=== PATIENT | female | born 1985 | race Caucasian/White ===

== ENCOUNTER 2020-10-27 12:25 | Outpatient (REF) | payer OTHER, SELFPAY ==
[2020-10-28 14:17] LABS: H Pylori Breath Test NOT DETECTED (NOT DETECTED)
== END 2020-10-27 12:26 | disposition home or self-care (01) ==
LOC: HO.LNP 12:25
PROVIDERS: PCP Internal Medicine; Visit Provider Physician Assistant
DX: E66.01 Morbid (severe) obesity due to excess calories (principal); Z68.41 Body mass index [BMI] 40.0-44.9, adult
CPT/HCPCS: 83013; 99202; 99211

== ENCOUNTER 2020-11-04 09:24 | Outpatient (REF) | payer OTHER, SELFPAY ==
--- NOTE | ~2020-11-04 | XR_ITS ---
EXAMINATION: XR CHEST CLINICAL INFORMATION: Obesity COMPARISON: None TECHNIQUE: 2 views of the chest were obtained. FINDINGS: The cardiac and mediastinal contours are normal. There is a pleural-based density adjacent to the right lateral lower lung. This may be related to the soft tissues of the arm. The lungs are otherwise clear. There is no pleural effusion or pneumothorax. Bony structures are unremarkable XR/XR chest 2V IMPRESSION: Increased pleural-based density adjacent to the lateral right mid to lower lung. This may be related to soft tissues from the patient's overlapping right arm. Follow-up PA chest x-ray recommended with arms out to the side.
--- NOTE | 2020-11-04 09:39 | ECG_ITS ---
Test Reason : MORBID OBESITY Blood Pressure : / mmHG Vent. Rate : 057 BPM Atrial Rate : 057 BPM P-R Int : 134 ms QRS Dur : 082 ms QT Int : 458 ms P-R-T Axes : 006 -13 001 degrees QTc Int : 445 ms Sinus bradycardia Otherwise normal ECG No previous ECGs available Referred By: Pilar Todd Electronically Signed By:Mati Vallejo
[2020-11-04 09:54] LABS: MANUAL DIFF FLAG NO
[2020-11-04 10:25] LABS: Basophils Percent Auto 0.7 % (0-2); Eosinophils Percent Auto 0.9 % (0-4); Hematocrit 37.1 % (37-47); Imm Gran Abs Auto 0.01 X10*3/uL (0.00-0.03); Imm Gran Pct Auto 0.2 % (0.0-0.4); Lymphocytes Absolute Auto 1.3 X10*3/uL (1.2-4.9); Mean Corpuscular HGB Conc 32.3 g/dl (31.0-35.0); Mean Corpuscular Hemoglobin 26.7 pg (27.0-33.0); Mean Corpuscular Volume 82.6 fL (80-98); Mean Platelet Volume 10.2 fL (9.4-12.3); Monocytes Absolute Auto 0.5 X10*3/uL (0.1-1.2); Monocytes Percent Auto 9.9 % (2-11); Neutrophils Absolute Auto 2.7 X10*3/uL (2.0-8.3); Neutrophils Percent Auto 60.3 % (45-73); Platelet Count 243 X10*3/uL (160-400); Red Blood Count 4.49 X10*6/uL (4.20-5.50); Red Cell Distribution Width 13.7 % (11.0-16.0); White Blood Count 4.5 X10*3/uL (4.8-10.8)
[2020-11-04 10:32] LABS: Estimated Average Glucose 94 mg/dL; Hemoglobin A1c % 4.9 %
[2020-11-04 11:03] LABS: Alanine Aminotransferase 21 U/L (0-31); Albumin Level 4.3 g/dL (3.5-5.0); Alkaline Phosphatase 68 U/L (39-117); Anion Gap 12 (12-20); Aspartate Amino Transferase 21 U/L (5-31); Bilirubin Total 0.6 mg/dL (0.0-1.0); Blood Urea Nitrogen 14 mg/dL (9-16); Calcium 9.4 mg/dL (8.4-10.2); Carbon Dioxide 24 mmol/L (22-29); Chloride 107 mmol/L (96-108); Cholesterol 155 mg/dL; Estimated Glomerular Filt Rate > 60; Glucose Fasting 79 mg/dL (60-99); HDL Cholesterol 45 mg/dL; Iron 28 mcg/dL (30-160); LDL Cholesterol Calculated 103 mg/dl; Percent Iron Saturation 8 % (15-50); Potassium 4.2 mmol/L (3.3-5.1); Sodium 139 mmol/L (135-145); Total Iron Binding Capacity 343 mcg/dL (228-428); Total Protein 7.1 g/dL (6.5-8.0); Triglycerides 36 mg/dL; Unsaturated Iron Binding 315 ug/dL
[2020-11-04 11:28] LABS: Ferritin 15 ng/mL (10-122); TSH reflex Free T4 1.27 uIU/mL (0.32-4.0)
[2020-11-04 11:34] LABS: Folate 17.7 ng/mL (> or = 4.0); Vitamin B12 1603 pg/mL (200-900)
[2020-11-05 09:22] LABS: Insulin Level Total 3.5 uIU/mL
[2020-11-05 11:22] LABS: Calcium (PTHI) 9.4 mg/dL (8.6-10.2); PTHI 30 pg/mL (14-64)
[2020-11-08 17:33] LABS: Zinc 81 mcg/dL (60-130)
[2020-11-10 12:27] LABS: Vitamin B1 6 nmol/L (8-30)
== END 2020-11-04 09:25 | disposition home or self-care (01) ==
LOC: HO.XRAY 09:24
PROVIDERS: PCP Internal Medicine; Visit Provider Physician Assistant
DX: E66.01 Morbid (severe) obesity due to excess calories (principal); R06.02 Shortness of breath; Z68.41 Body mass index [BMI] 40.0-44.9, adult
CPT/HCPCS: 36415; 71046; 80053; 80061; 82306; 82607; 82728; 82746; 83036; 83525; 83540; 83970; 84425; 84443; 84590; 84630; 85025; 86140; 93005

== ENCOUNTER 2020-11-16 13:52 | Outpatient (REF) | payer OTHER, SELFPAY ==
--- NOTE | ~2020-11-16 | XR_ITS ---
EXAMINATION: XR CHEST CLINICAL INFORMATION: Bariatric service evaluation. E66.01 COMPARISON: Chest radiographs 11/04/2020 TECHNIQUE: 2 frontal views and a lateral projection of the chest are obtained for 3 views. FINDINGS: Lungs are clear. The vascularity is normal. There is no pleural reaction, airspace consolidation, or effusion. The heart is normal in size. The hilar and mediastinal contours are unremarkable. Mild curvature thoracic spine again noted. The smooth density overlying lateral right chest is not present on the second of the 2 frontal views consistent with superimposed overlying soft tissues as suspected on prior exam. XR/XR chest 2V IMPRESSION: Unremarkable examination.
== END 2020-11-16 13:53 | disposition home or self-care (01) ==
LOC: HO.XRAY 13:52
PROVIDERS: PCP Internal Medicine; Visit Provider Physician Assistant
DX: E66.01 Morbid (severe) obesity due to excess calories (principal); R06.02 Shortness of breath; E51.9 Thiamine deficiency, unspecified; E55.9 Vitamin D deficiency, unspecified; Z71.3 Dietary counseling and surveillance
CPT/HCPCS: 71046; 99212

== ENCOUNTER → 2020-12-06 08:13 | Outpatient (BNVA) | payer OTHER, SELFPAY | PROVIDERS: PCP Internal Medicine; Visit Provider Dietitian, Registered | DX: E66.9 Obesity, unspecified (principal); Z68.41 Body mass index [BMI] 40.0-44.9, adult | CPT/HCPCS: 97802 ==

== ENCOUNTER 2020-12-13 11:07 | Outpatient (REF) | payer OTHER, SELFPAY ==
[2020-12-13 14:05] LABS: Vitamin D 25-OH Total 35.9 ng/mL (>30)
[2020-12-17 12:51] LABS: Vitamin B1 7 nmol/L (8-30)
== END 2020-12-13 11:08 | disposition home or self-care (01) ==
LOC: HO.LAB 11:07
PROVIDERS: Visit Provider Physician Assistant
DX: E51.9 Thiamine deficiency, unspecified (principal); E55.9 Vitamin D deficiency, unspecified
CPT/HCPCS: 36415; 82306; 84425

== ENCOUNTER → 2021-01-14 07:33 | Outpatient (BNVA) | payer OTHER, SELFPAY | PROVIDERS: Visit Provider Surgery ==

== ENCOUNTER 2021-01-20 09:44 | Outpatient (REF) | payer OTHER, SELFPAY ==
--- NOTE | ~2021-01-20 | FL_ITS ---
EXAMINATION: XR GI SERIES CLINICAL INFORMATION: Obesity COMPARISON: None TECHNIQUE: Upper GI was performed using thin and thick barium and effervescent granules. FINDINGS: Esophageal motility is normal. The stomach and duodenum are normal. No fold thickening, mass, ulcer or stricture is seen. No esophageal hernia or reflux is seen. FLUOROSCOPY TIME: 0.8 minutes DOSE AREA PRODUCT: 8 Lanza per centimeter squared. Total dose 36 mGy. 24 saved fluoroscopic images. FL/FL upper GI series IMPRESSION: Unremarkable examination.
== END 2021-01-20 09:45 | disposition home or self-care (01) ==
LOC: HO.XRAY 09:44
PROVIDERS: Visit Provider Surgery
DX: Z01.818 Encounter for other preprocedural examination (principal); E66.01 Morbid (severe) obesity due to excess calories
CPT/HCPCS: 74240

== ENCOUNTER 2021-02-03 09:50 | Outpatient (REF) | payer OTHER, SELFPAY ==
--- NOTE | ~2021-02-03 | US_ITS ---
EXAMINATION: US COMPLETE ABDOMEN WITH LIVER ELASTOGRAPHY CLINICAL INFORMATION: Obesity COMPARISON: None. TECHNIQUE: Real-time imaging of the abdominal viscera. Noninvasive ultrasound liver fibrosis assessment is performed using Waqas ElastPQ point quantification shear wave elastography (pSWE) with a C5-2 MHz transducer. Multiple elastography samples are obtained. FINDINGS: PANCREAS: The visualized pancreatic head and body are normal in appearance. The remainder of the pancreas is obscured from visualization by the overlying bowel gas. ABDOMINAL AORTA: The proximal and distal aortic segments are normal in caliber. Midabdominal aorta is not well visualized due to bowel gas. INFERIOR VENA CAVA: Visualized portions are normal. LIVER: Normal. The liver demonstrates normal size, contour and echogenicity. No focal lesion or intrahepatic biliary duct dilatation. The right lobe measures 16 cm in length. The left lobe measures 10 cm in length. Portal flow is normal/hepatopedal. Shear wave liver elastography median stiffness is 1.4 m/s (reference: normal median stiffness is 1.3 m/s or less). IQR/median stiffness to assess sampling precision is 0.26 (reference: good quality data set is IQR/median stiffness of 0.15 or less). GALLBLADDER: There is a wall echo shadow complex suggestive of a gallbladder filled with gallstones. COMMON BILE DUCT: Normal in caliber measuring 0.6 cm in diameter. RIGHT KIDNEY: Normal. No hydronephrosis. No renal calculi or focal parenchymal lesions. The kidney measures 12 cm in maximum dimension. LEFT KIDNEY: Normal. No hydronephrosis. No renal calculi or focal parenchymal lesions. The kidney measures 13 cm in maximum dimension. SPLEEN: Normal. The spleen measures 11 cm in maximum dimension. FREE FLUID: None. US/US abdomen comp w elastography IMPRESSION: 1. Impression normal-appearing liver. Gallstones. Limited visualization of the pancreas and aorta. 2. Liver elastography: Slightly limited due to sampling error. In the absence of other known clinical signs, rules out compensated advanced chronic liver disease. REFERENCE: Society of Radiologists in Ultrasound Liver Stiffness Thresholds (2020): LIVER STIFFNESS THRESHOLDS: *Liver Stiffness equal or less than 1.3 m/s: High probability of being normal. *Liver Stiffness less than 1.7 m/s: In the absence of other known clinical signs, rules out compensated advanced chronic liver disease. *Liver Stiffness 1.7-2.1 m/s: Suggestive of compensated advanced chronic liver disease but need further test for confirmation. *Liver Stiffness over 2.1 m/s: Rules in compensated advanced chronic liver disease. *Liver Stiffness over 2.4 m/s: Suggestive of clinically significant portal hypertension. QUALITY OF DATA SET: *IQR/Median value equal or less than 0.15 implies a quality data set. *IQR/Median value over 0.15 implies a poor quality data set. SIGNIFICANT CHANGE FROM PRIOR EXAM: Significant change if liver stiffness measurement is 10% or greater from prior exam. OTHER CONSIDERATIONS: The stage of liver fibrosis may be overestimated in the setting of acute hepatitis, liver inflammation, elevated liver function tests, hepatic vascular congestion, obstructive cholestasis, non-fasting state, and infiltrative diseases such as amyloidosis and lymphoma. In some patients with NAFLD, the liver stiffness thresholds for compensated advanced chronic liver disease may be lower. In causes other than viral hepatitis and NAFLD, liver stiffness thresholds are not well established.
== END 2021-02-03 09:51 | disposition home or self-care (01) ==
LOC: HO.US 09:50
PROVIDERS: Visit Provider Surgery
DX: Z01.818 Encounter for other preprocedural examination (principal); E66.01 Morbid (severe) obesity due to excess calories
CPT/HCPCS: 76705; 76981

== ENCOUNTER → 2021-02-10 08:10 | Outpatient (BNVA) | payer OTHER, SELFPAY | PROVIDERS: Visit Provider Surgery ==

== ENCOUNTER → 2021-02-28 08:03 | Outpatient (BNVA) | payer OTHER, SELFPAY | PROVIDERS: Visit Provider Surgery ==

== ENCOUNTER → 2021-03-01 08:03 | Outpatient (BNVA) | payer OTHER, SELFPAY | PROVIDERS: Visit Provider Physician Assistant ==

== ENCOUNTER → 2021-03-07 07:40 | Outpatient (BNVA) | payer OTHER, SELFPAY | PROVIDERS: Visit Provider Surgery ==

== ENCOUNTER → 2021-03-11 13:21 | Outpatient (BNVA) | payer OTHER, SELFPAY | PROVIDERS: Visit Provider Physician Assistant ==

== ENCOUNTER 2021-03-17 09:42 | Inpatient (IN) | payer OTHER, SELFPAY ==
[2021-03-10 11:20] VITALS: BMI 38.7
[2021-03-10 11:47] LABS: MANUAL DIFF FLAG NO
[2021-03-10 12:00] LABS: Basophils Percent Auto 0.6 % (0-2); Eosinophils Absolute Auto 0.1 X10*3/uL (0.0-0.4); Eosinophils Percent Auto 2.5 % (0-4); Hematocrit 39.4 % (37-47); Hemoglobin 12.7 g/dl (12.0-16.0); Imm Gran Abs Auto 0.01 X10*3/uL (0.00-0.03); Imm Gran Pct Auto 0.3 % (0.0-0.4); Lymphocytes Absolute Auto 1.1 X10*3/uL (1.2-4.9); Lymphocytes Percent Auto 30.8 % (20-40); Mean Corpuscular HGB Conc 32.2 g/dl (31.0-35.0); Mean Corpuscular Hemoglobin 27.9 pg (27.0-33.0); Mean Corpuscular Volume 86.6 fL (80-98); Mean Platelet Volume 10.1 fL (9.4-12.3); Monocytes Absolute Auto 0.4 X10*3/uL (0.1-1.2); Neutrophils Percent Auto 55.8 % (45-73); Platelet Count 232 X10*3/uL (160-400); Prothrombin Time 11.9 SEC (9.9-13.0); Red Blood Count 4.55 X10*6/uL (4.20-5.50); Red Cell Distribution Width 13.7 % (11.0-16.0); White Blood Count 3.6 X10*3/uL (4.8-10.8)
[2021-03-10 12:03] LABS: Partial Thromboplastin Time 38.6 SEC (24.1-38.0)
[2021-03-10 12:19] LABS: Estimated Average Glucose 94 mg/dL; Hemoglobin A1c % 4.9 %
[2021-03-10 12:28] LABS: Alanine Aminotransferase 67 U/L (0-31); Albumin Level 4.3 g/dL (3.5-5.0); Alkaline Phosphatase 112 U/L (39-117); Anion Gap 9 (12-20); Aspartate Amino Transferase 44 U/L (5-31); Bilirubin Total 0.4 mg/dL (0.0-1.0); Blood Urea Nitrogen 10 mg/dL (9-16); C Reactive Protein 0.39 mg/dL (< or = 0.50); Calcium 9.3 mg/dL (8.4-10.2); Carbon Dioxide 28 mmol/L (22-29); Chloride 108 mmol/L (96-108); Cholesterol 180 mg/dL; Creatinine Clr Calc Pharmacy 148.4; Estimated Glomerular Filt Rate > 60; Glucose Random 86 mg/dL (60-115); HDL Cholesterol 36 mg/dL; LDL Cholesterol Calculated 127 mg/dl; Potassium 4.1 mmol/L (3.3-5.1); Sodium 141 mmol/L (135-145); Triglycerides 88 mg/dL
[2021-03-10 12:37] LABS: Insulin 4 uU/mL (2-29); TSH reflex Free T4 2.16 uIU/mL (0.32-4.0)
--- NOTE | 2021-03-14 19:54 | MHC.SHP ---
Pre-Procedural Eval Section A Date of Service: 03/14/21 The patient is an INPATIENT: Yes The History & Physical has been completed within 30 days and I have reviewed it.: Yes Section B Chief Complaint: Obesity Relevant Family History (Specify if Yes): No Relevant Social History: None Present Medications: None Medical History: No relevant PMH History of Previous Operations: No relevant previous surgery Allergies: Allergies Allergy/AdvReac Type Severity Reaction Status Date / Time No Known Allergies [NKA] Allergy Verified 03/10/21 08:28 Review of Systems Sugical H&P ROS: Negative: Constitution, Cardiovascular, Respiratory, Neurological, Psychiatric, Hem-Onc, Allergic/Immunologic, Gastrointestinal, Genitourinary, Musculoskeletal, Integumentary, Endocrine and Eyes/Ears/Nose/Throat Exam Surgical H&P Exam: Normal: HEENT, Normal: Heart, Normal: Lungs, Normal: Extremities, Normal: Abdomen, Normal: Skin and Normal: Neurological Plan Diagnosis/Plan: Unchanged I have reviewed the history and physical and performed a pertinent physical examination on my patient. No changes have occurred unless specified.
[2021-03-15 12:31] LABS: Vitamin B1 <6 nmol/L (8-30)
--- NOTE | 2021-03-16 10:41 | HO.ANESPROP2 ---
Documented by User: Morenita Granado NP 03/16/21 10:41 HPI - Anesthesia Eval Consult details Narrative: 35yo F for Gastrectomy Sleeve, EGD, Poss Diaphragmatic Hernia, Poss Ventral Hernia, Poss open PMFSH Active Problems Active Problems: All Active Problems (Updated 03/07/21 @ 07:42 by Min Painter MD) BMI 38.0-38.9,adult (Acute) BMI 39.0-39.9,adult (Acute) Obesity (Acute) Pre-op evaluation (Acute) Morbid obesity (Acute) Vitamin D deficiency (Acute) Vitamin B1 deficiency (Acute) Adjustment disorder, unspecified (Acute) BMI 40.0-44.9, adult (Acute) Past Medical History Medical History BMI 40.0-44.9, adult Gestational hypertension Morbid obesity Vitamin B1 deficiency Vitamin D deficiency Family History Family History Mother Asthma Father Diabetes Hypertension Brother No problems noted. Son No problems noted. Daughter No problems noted. Daughter No problems noted. Daughter No problems noted. Daughter No problems noted. Surgical History Surgical History Hx of section Hx of tubal ligation Social History Social History Are you a primary critical care nurse to a significant other at home: No Do you presently have visiting nurse or other home services: No Alcohol intake: never Patient Tobacco Use Status: Never used Tobacco Meds Allergies Allergy/AdvReac Type Severity Reaction Status Date / Time No Known Allergies [NKA] Allergy Verified 03/10/21 08:28 Exam Exam Date and Time: March 16, 2021 1041 Height,Weight and Vital Signs: Height 5 ft 8 in Weight 115.666 kg Pertinent Lab Results Pertinent Lab Results: Laboratory Tests 03/10/21 03/10/21 03/10/21 11:38 11:45 11:45 WBC 3.6 L RBC 4.55 Hgb 12.7 Hct 39.4 MCV 86.6 MCH 27.9 MCHC 32.2 RDW 13.7 Plt Count 232 MPV 10.1 Immature Gran % (Auto) 0.3 Neut % (Auto) 55.8 Lymph % (Auto) 30.8 Andrew % (Auto) 10.0 Eos % (Auto) 2.5 Baso % (Auto) 0.6 Lymph # (Auto) 1.1 L Andrew # (Auto) 0.4 Eos # (Auto) 0.1 Baso # (Auto) 0.0 Abs Immat Gran (auto) 0.01 Absolute Neuts (auto) 2.0 Absolute Nucleated RBC 0.000 Nucleated RBC % (auto) 0.0 PT INR APTT Sodium Potassium Chloride Carbon Dioxide Anion Gap BUN Creatinine Estim Creat Clear Calc Estimated GFR Random Glucose Estimat Average Glucose Hemoglobin A1c % Insulin Level Calcium Total Bilirubin AST ALT Alkaline Phosphatase C-Reactive Protein Total Protein Albumin Triglycerides Cholesterol LDL Cholesterol, Calc HDL Cholesterol Vitamin B1 <6 L TSH Blood Type O Positive Antibody Screen NEGATIVE 03/10/21 03/10/21 03/10/21 11:45 11:45 11:45 WBC RBC Hgb Hct MCV MCH MCHC RDW Plt Count MPV Immature Gran % (Auto) Neut % (Auto) Lymph % (Auto) Andrew % (Auto) Eos % (Auto) Baso % (Auto) Lymph # (Auto) Andrew # (Auto) Eos # (Auto) Baso # (Auto) Abs Immat Gran (auto) Absolute Neuts (auto) Absolute Nucleated RBC Nucleated RBC % (auto) PT 11.9 INR 1.0 APTT 38.6 H Sodium 141 Potassium 4.1 Chloride 108 Carbon Dioxide 28 Anion Gap 9 L BUN 10 Creatinine 0.72 Estim Creat Clear Calc 148.4 Estimated GFR > 60 Random Glucose 86 Estimat Average Glucose 94 Hemoglobin A1c % 4.9 Insulin Level 4 Calcium 9.3 Total Bilirubin 0.4 AST 44 H D ALT 67 H Alkaline Phosphatase 112 D C-Reactive Protein 0.39 Total Protein 7.0 Albumin 4.3 Triglycerides 88 Cholesterol 180 LDL Cholesterol, Calc 127 HDL Cholesterol 36 Vitamin B1 TSH 2.16 Blood Type Antibody Screen Narrative Narrative: EKG 10/2020 Vent. Rate : 057 BPM ? ? Atrial Rate : 057 BPM ?? P-R Int : 134 ms? QRS Dur : 082 ms ? ? QT Int : 458 ms ? ? ? P-R-T Axes : 006 -13 001 degrees ?? QTc Int : 445 ms ? Sinus bradycardia Otherwise normal ECG No previous ECGs available Assessment and Plan Assessment Anesthesia Assessment: Chart Reviewed Documented by User: Saray Rush MD 03/17/21 07:38 PMFSH Past Medical History Medical History BMI 40.0-44.9, adult Gestational hypertension Morbid obesity Vitamin B1 deficiency Vitamin D deficiency Family History Family History Mother Asthma Father Diabetes Hypertension Brother No problems noted. Son No problems noted. Daughter No problems noted. Daughter No problems noted. Daughter No problems noted. Daughter No problems noted. Family history of problems with anesthesia: No Surgical History Surgical History Hx of section Hx of tubal ligation History of Problems with Anesthesia: Yes (N&V with C-sections) Social History Social History Are you a primary critical care nurse to a significant other at home: No Do you presently have visiting nurse or other home services: No Alcohol intake: never Patient Tobacco Use Status: Never used Tobacco Meds Allergies Allergy/AdvReac Type Severity Reaction Status Date / Time No Known Allergies [NKA] Allergy Verified 03/10/21 08:28 Exam Height,Weight and Vital Signs: Height 5 ft 8 in Weight 115.666 kg Vital Signs Temp Pulse Resp BP Pulse Ox 03/17/21 06:27 98.0 F 82 16 106/52 L 100 Pertinent Lab Results Pertinent Lab Results: Laboratory Tests 03/10/21 03/10/21 03/10/21 11:38 11:45 11:45 WBC 3.6 L RBC 4.55 Hgb 12.7 Hct 39.4 MCV 86.6 MCH 27.9 MCHC 32.2 RDW 13.7 Plt Count 232 MPV 10.1 Immature Gran % (Auto) 0.3 Neut % (Auto) 55.8 Lymph % (Auto) 30.8 Andrew % (Auto) 10.0 Eos % (Auto) 2.5 Baso % (Auto) 0.6 Lymph # (Auto) 1.1 L Andrew # (Auto) 0.4 Eos # (Auto) 0.1 Baso # (Auto) 0.0 Abs Immat Gran (auto) 0.01 Absolute Neuts (auto) 2.0 Absolute Nucleated RBC 0.000 Nucleated RBC % (auto) 0.0 PT INR APTT Sodium Potassium Chloride Carbon Dioxide Anion Gap BUN Creatinine Estim Creat Clear Calc Estimated GFR Random Glucose Estimat Average Glucose Hemoglobin A1c % Insulin Level Calcium Total Bilirubin AST ALT Alkaline Phosphatase C-Reactive Protein Total Protein Albumin Triglycerides Cholesterol LDL Cholesterol, Calc HDL Cholesterol Vitamin B1 <6 L TSH Blood Type O Positive Antibody Screen NEGATIVE 03/10/21 03/10/21 03/10/21 11:45 11:45 11:45 WBC RBC Hgb Hct MCV MCH MCHC RDW Plt Count MPV Immature Gran % (Auto) Neut % (Auto) Lymph % (Auto) Andrew % (Auto) Eos % (Auto) Baso % (Auto) Lymph # (Auto) Andrew # (Auto) Eos # (Auto) Baso # (Auto) Abs Immat Gran (auto) Absolute Neuts (auto) Absolute Nucleated RBC Nucleated RBC % (auto) PT 11.9 INR 1.0 APTT 38.6 H Sodium 141 Potassium 4.1 Chloride 108 Carbon Dioxide 28 Anion Gap 9 L BUN 10 Creatinine 0.72 Estim Creat Clear Calc 148.4 Estimated GFR > 60 Random Glucose 86 Estimat Average Glucose 94 Hemoglobin A1c % 4.9 Insulin Level 4 Calcium 9.3 Total Bilirubin 0.4 AST 44 H D ALT 67 H Alkaline Phosphatase 112 D C-Reactive Protein 0.39 Total Protein 7.0 Albumin 4.3 Triglycerides 88 Cholesterol 180 LDL Cholesterol, Calc 127 HDL Cholesterol 36 Vitamin B1 TSH 2.16 Blood Type Antibody Screen Laboratory Results - last 24 hr 03/17/21 06:12 COVID-19 ([facility]) Negative COVID-19 Clin Com See Note Airway Mallampati Class: II TM Dist: >3cm Neck ROM: Full Loose/Missing/Broken Teeth: No Heart: RRR Lungs: CTAB Assessment and Plan Assessment Anesthesia Assessment: Anesthesia Plan Discussed Final Anesthetic Review Family History of Problems with Anesthesia: No History of Problems with Anesthesia: Yes (N&V with C-sections) NPO: Yes ASA Class: III Final Preanesthetic Review: No Changes in Pt Med Stat, Meds/Allgs Chart Reviewed, Consent Obtained/Reviewed and Anes Risks/Benef Reviewed Patient Risk: Intermediate Procedure Risk: Intermediate Assessment/Block/Sedation in SS: Assess/Block/Sedation-SS Anesthetic Plan Anesthetic Plan: GA Disposition: Standard PACU and Inp. Admit - Standard Bed
[2021-03-17] VITALS (17 sets, daily range): BP systolic 106–132; BP diastolic 50–87; PULSE 60–96; RESP 16–20; TEMP 36.2–37.2; O2SAT 99–100
[2021-03-17 06:46] LABS: COVID-19 Test Negative (Negative)
[2021-03-17] MEDS: Lactated Ringers 1,000 ML 999 ML IV (06:47)
[2021-03-17] MEDS: ceFAZolin Sodium/Dextrose,Iso 2 GM/50 ML PIGGYBACK IV ×2 (07:45→14:09)
[2021-03-17] MEDS: ondansetron HCL 4 MG/2 ML VIAL IVPUSH ×3 (09:46→22:41)
--- NOTE | 2021-03-17 09:47 | P.BOP_ITS ---
Brief Operative Note Date of Service: 03/17/21 Pre-op diagnosis: Severe obesity with comorbidities Post-op diagnosis: same Procedure: INITIAL PATIENT BMI ON PRESENTATION AT OUR OFFICE: 41.9 kg/m2 LAST BMI BEFORE SURGERY: 38.7 kg/m2 COMORBIDITIES: cholelithiasis The patient participated in an intensive weekly lifestyle ?intervention and exercise program during which the patient ?has lost between the initial office visit and the last preoperative visit 33lbs, or 11.43% of initial actual body weight. The patient met the BMI-criteria for bariatric surgery based on the BMI on initial presentation. The patient should not be penalized for achieving such weight loss because ?it is not sustainable long-term without surgical intervention and it was achieved in preparation for bariatric surgery ?under my direction and based on my published research ([email or web address] and? [email or web address]/pdf ) ?that a 10% preoperative weight loss improves long-term weight loss after surgery and reduces perioperative complications.? Insurance carriers such as [facility] have endorsed my recommendations ?and have included in their policies criteria to in clude a 10% preoperative weight loss requirement. PROCEDURE: Esophago-gastroscopy, laparoscopic sleeve gastrectomy and laparoscopic gastropexy INDICATIONS: This is a 35 year-old female who was electively scheduled for laparoscopic, possibly open sleeve gastrectomy. The risks and complications of the procedure were discussed with the patient in advance, particularly the possibility of ; pulmonary embolism; staple line leak; bleeding; GERD; cardiac, pulmonary, or renal complications; as well as long-term problems such as insufficient weight loss, vitamin deficiency, strictures, or ulcers. The patient understood all the risks, and was in agreement to proceed with surgery. DESCRIPTION OF PROCEDURE: After informed consent was obtained from the patient, the patient was given preoperative antibiotics, and was transferred to the operating room. After successful induction of general anesthesia, pneumatic compressive devices were placed on both lower extremities. An upper endoscopy was performed next. The oropharynx and esophagus appeared to be within normal limits. There was no diaphragmatic hernia present consistent with the findings of the preoperative upper GI. The stomach was entered. Then after all fluid and air were suctioned and the stomach was fully decompressed, the scope was withdrawn and secured in the mid esophagus. The patient was then prepped and draped in the usual sterile manner, and abdominal access was established at the right upper quadrant with the Carlos Manuel technique. A 12 mm blunt port was inserted, and the abdomen was insufflated with CO2 to a pressure of 15 mmHg. Under direct visualization, additional ports were placed, specifically two 5 mm Versi-step ports to the left upper quadrant, and a 5 mm Versi-Step port to the right upper quadrant. 1% lidocaine plain was used to infiltrate all port sites as well as all fascia defects. Using the EndoClose suture passer device, I placed a #1 Polysorb tie across the falciform ligament in order to retract it up against the abdominal wall and prevent injury of the ligament with our instruments during the procedure. Following that, the patient was placed in a steep reverse Trendelenburg position. An additional 5 mm port was placed to the right flank for the Mediflex retractor that was used to retract the left lobe of the liver. The gastro-esophageal fat pad was opened with the ultrasonic device (T hunderbeat, Olympus) and the anterior esophagus and hiatus were exposed. The angle of His was opened with the ultrasonic device the fundus of the stomach from any diaphragmatic and splenic attachments. I then opened the gastrocolic ligament between the transverse colon and the greater curvature of the stomach with the ultrasonic device to enter the lesser sac and facilitate the ligation of the short gastric vessels. I started at a mid-point along the greater curvature and using the Thunderbeat, all short gastric vessels were divided all the way to the angle of His until the left jeff was completely dissected at its entirety. I then divided the gastro-colic ligament distally to a distance of about 3-4 cm proximal to the esophagus. The stomach was then divided transversely with one Endo DANNI-45 purple, one DANNI- 45 orange and four DANNI-60 articulating orange loads using the SinDelantal.MxON staplers and loads. Every effort was made that the gastric sleeve had a tubular shape and an even caliber throughout. Once the sleeve resection was completed, the staple line of the gastric sleeve was reinforced with Hemoclips. The resected stomach was retrieved without difficulty from the Carlos Manuel port. A gastropexy was then performed in order to prevent postoperative GERD and partial gastric volvulus. Several interrupted 2.0 Surgidac sutures were placed between the sleeve's staple line and the previously divided greater omentum and gastro-colic ligament using the Endo-Stitch device. ?An upper endoscopy was performed. There was no narrowing at the GE junction. The scope was easily advanced all the way to the pylorus which was clearly visualized. There was no narrowing anywhere and the sleeve's caliber was even throughout. The sleeve's staple line was inspected and there was no evidence of ischemia, bleeding or dehiscence. At that point the gastroscope was withdrawn from the patient?s mouth while we were decompressing the bowel and the stomach from any remaining air. I looked into the lesser sac to see how the sleeve was situating and it was situating well. There was no bleeding from the staple line, spleen, or short gastric vessels. The Mediflex retractor was removed, and the undersurface of the liver was inspected and there was no bleeding. The patient was placed in supine position. I closed the fascial defect of the 12 mm port site with a figure of eight #1 Polysorb suture. Then 100 cc 0.25 % Marcaine plain with 10 mg of Dexamethasone were used to infiltrate the fascial closure as well as all skin incisions. At this point, the abdomen was deflated, all ports were removed under direct vision, and no bleeding was noted from any of the port sites. The skin incisions were irrigated with saline and were closed with 4-0 absorbable monofilament sutures. Steri-Strips and OpSites were used to cover all incisions. The patient was extubated and was transferred in stable condition to the recovery room for further care. I was present and performed all chowdary parts of the procedure. Ms. Bhatt was the office manager executive assistant. There were no residents to assist with this case. Mikal Painter MD, PhD, FACS Surgeon: Min Painter MD Anesthesia: GETA Was an Chemical Inspector used for this Procedure?: Yes Chemical Inspector: Beth Bhatt Estimated blood loss (mL): 10 IV fluids (mL): 2,000 Urine output (mL): 0 (No Balderas to fravity) Pathology: other (Stomach) Condition: stable Disposition: PACU
--- NOTE | 2021-03-17 09:49 | P.DS_ITS ---
DS: Providers Provider Date of Service: 03/18/21 Primary care physician: Unknown Physician DS: Summary Hospital Course Hospital Course: ADMITTING DIAGNOSIS: morbid obesity DISCHARGE DIAGNOSIS: same, s/p laparoscopic sleeve gastrectomy PAST SURGICAL HISTORY: section and Bilteral tubal ligation PROCEDURE: upper endoscopy, laparoscopic sleeve gastrectomy DISCHARGE SUMMARY: History of Present Illness: The patient is a 35 year-old woman with a BMI of 43.8 kg/m2 and associated co- morbidities as described above. The patient had extensive work-up,lost 33 lbs preoperatively and was electively scheduled for laparoscopic, possible open sleeve gastrectomy and gastropexy. Risks and complications of the surgery were discussed with the patient in advance, particularly the possibility of , pulmonary embolism, anastomotic leak, bleeding, bowel injury, GERD, cardiac, renal or pulmonary complications. The patient understood all the risks and was in agreement with the surgical plan. Hospital Course: The patient underwent an uneventful laparoscopic sleeve gastrectomy with gastropexy on the day of admission. Postoperatively, the patient was transferred to the surgical floor. The patient received IV Acetaminophen and IV dilaudid for pain control. Patient was started on bariatric phase 1 diet POD #0. On postoperative day one, the patient was feeling well without nausea, vomiting, fevers, or tachycardia. The patient had some mild incisional pain and the abdomen was soft. On the morning of postoperative day one, the patient was continued on 1 ounce of water or ice every half hour. During the day, the patient did fairly well, having some incisional pain, but able to ambulate adequately and to tolerate liquids well. Since the patient is doing well, we decided that the patient was ready to be discharged. The patient was given instructions to follow-up with me next week and to call my office for any fever over 101, persistent abdominal pain, nausea, vomiting, GERD, symptoms of DVT such as calf tenderness, or leg swelling, or pulmonary embolism such as chest pain or shortness of breath. The patient was also instructed to drink 40-60 ounces of liquids per day using the 1-ounce cups. The patient had been given prescriptions for Tylenol for pain, Zofran prn for nausea, and pantoprazole and carafate previously. The patient was encouraged to ambulate and use the incentive spirometer. The patient was allowed to shower, but no baths, and encouraged to stay active at home. All of these instructions were given to the patient personally. All questions were answered and the patient understood all instructions, the instructions were also given to the patient in print. Time Spent with Patient Time attestation: Total time spent providing and/or coordinating discharge services: Discharge coordination time: Less than 30 minutes Quality: Stroke Does the patient have a stroke diagnosis?: No Physical Exam Vital Signs: Vital Signs: Last Vital Signs Temp 98.0 F 03/17/21 06:27 Pulse 82 03/17/21 06:27 Resp 16 03/17/21 06:27 BP 106/52 L 03/17/21 06:27 Pulse Ox 100 03/17/21 06:27 Body Mass Index 38.7 DS: Data Data Completed and Pending Pending studies at discharge: Pending at discharge 03/17/21 09:18 Surgical [PTH] Routine Labs on day of discharge: Laboratory Results - last 24 hr 03/17/21 06:12 COVID-19 ([facility]) Negative COVID-19 Clin Com See Note Discharge Plan Discharge Anticipated Discharge Date/Time: 03/18/21 10:42 Patient Disposition: Home, Self-Care Discharge Diagnosis: s/p sleeve gastrectomy Referrals: Physician,Unknown J [Primary Care Provider] - 1 Week Discharge Medications: Continued pantoprazole 40 mg tablet,delayed release (DR/EC) 40 mg PO DAILY Qty: 30 RF: 2 sucralfate 100 mg/mL suspension 10 ml PO BID Qty: 400 RF: 2 ondansetron HCl [Zofran] 4 mg tablet 4 mg PO Q12H Qty: 30 RF: 2 Discontinued thiamine HCl (vitamin B1) 100 mg tablet 100 mg PO DAILY 30 Days Qty: 30 RF: 2 cholecalciferol (vitamin D3) 1,250 mcg (50,000 unit) capsule 1,250 mcg PO QWEEK 28 Days Qty: 4 RF: 0 polyethylene glycol 3350 [Miralax] 17 gram powder in packet 17 g PO DAILY Qty: 14 RF: 0 Discharge Orders: Discharge Order (Routine); Ordered 03/18/21 Ordered By: Min Painter Diet: other Activity on Discharge: No heavy lifting Stand Alone Forms: Patient Portal Discharge page Care Plan Goals: weight loss Health Concerns: morbid obesity Plan of Treatment: No tub baths, sex or returning to work until discussed at first post op appointment. No exercise, alcohol, tobacco or illegal drug use. Continue to use incentive spirometer hourly while awake. Walk in home for 5- 10 minutes every 2 hours during the first week. Continue phase 1 diet today and start phase 2 diet tomorrow morning. Follow all instructions in the bariatric handbook and call with any questions. 1. Please call your doctor or come back to the emergency room should any new symptoms arise. 2. You will receive a courtesy call from [facility] 24-48 hours after discharge. 3. Activity: abstain from alcohol, practice limited stair climbing, no bending, no driving, no exercise, no illicit substances, no lifting, no sex, no tub bath, no work. 4. Diet: continue as discussed with Dr. Painter. 5. Dressing Change/Wound Care: Do not change or remove surgical dressings unless they are wet or soiled. 6. Call your doctor if: - Your temperature exceeds 101.5 F - You experience excessive pain or swelling - You have an unexpected reaction to medication - You have excessive bleeding - You experience continued vomiting/nausea - Your incision begins to separate - Your incision shows signs of infection such as increased redness, swelling, excessive pain, heat, or drainage (light blood or clear fluid is normal) 7. General instructions: No lifting greater than 5 lbs for the next 4 weeks[address] driving within 24 hours of taking narcotic pain medications. If you do not move your bowels in the next 2 days, please take milk of magnesia over the counter. Please follow the post op diet and do not advance your diet until you are seen in the office in about 2 weeks. Please walk around your home every hour or two to prevent blood clots from forming in your legs. You do not need to wake from sleeping to walk. Please sleep in a bed or couch to prevent kinking at the hips and knees. Please take your incentive spirometer (your lung machine cage maker) home with you and use it for the next few days to prevent pneumonias. You may shower, no hot tubs, baths or swimming pools. Please call the office with any questions or concerns such as increasing abdominal pain, fever, chills, shortness of breath, chest pain, leg pain or swelling, or redness or drainage from your incisions. Do not hesitate to contact the office with any questions at . The patient's medical history has been reviewed and they are considered low risk for post op DVT and therefore DVT prophylaxis is not considered necessary. Travel after surgery was reviewed. The patient has not disclosed any travel plans during the first 30 days after surgery and they have been advised that within the first 30 days after surgery any bus, plane, train or car travel over 2 hours in duration is contraindicated due to the possibility of developing blood clots from immobility. Any travel, needs to include periods of ambulation of 10 minutes in duration every 2 hours. The patient was instructed to discuss any plans for travel during this period with their bariatric surgeon. Assessment: stable, post op sleeve gastrectomy
--- NOTE | 2021-03-17 09:51 | PM.PNGS ---
Subjective Subjective Date of Service: 03/18/21 Interval history: Patient has mild incisional pain, but was able to ambulate and use the incentive spirometer. She is tolerating phase 1 bariatric diet Physical Exam Vital Signs: Vital Signs: Last Vital Signs Temp 98.0 F 03/17/21 06:27 Pulse 82 03/17/21 06:27 Resp 16 03/17/21 06:27 BP 106/52 L 03/17/21 06:27 Pulse Ox 100 03/17/21 06:27 Body Mass Index 38.7 GI: Inspection: Yes normal to inspection and Yes incision (clean, dry and intact) Extrem: Right lower extremity: normal to inspection (no calf tenderness) Left lower extremity: normal to inspection (no calf tenderness) Procedures Date of Service Date of Service: 03/18/21 Progress Note: A&P Assessment and plan (1) Obesity: Status: Acute Assessment and Plan: s/p laparoscopic sleeve gastrectomy and gastropexy Doing well Check am labs. If OK, will discharge home? (2) BMI 38.0-38.9,adult: Status: Acute (3) S/P laparoscopic sleeve gastrectomy: Status: Acute (4) Cholelithiasis: Status: Acute Fall Risk Details Current Medications: Current Medications Famotidine (Famotidine/Pf 20 Mg/2 Ml Vial) 20 mg IVPUSH BID AL Fentanyl (Fentanyl Citrate/Pf 100 Mcg/2 Ml Vial) 25 mcg IVPUSH Q5M PRN; Protocol PRN Reason: Pain, Moderate (Pain Scale 4-6 Hydromorphone HCl (Hydromorphone Hcl 0.5 Mg/0.5 Ml Syringe) 0.25 mg IVPUSH Q5M PRN; Protocol PRN Reason: Pain, Severe (Pain Scale 7-10) Lactated Ringer's (Lr) 1,000 mls @ 100 mls/hr IVCONT .Q10H AL Promethazine HCl 6.25 mg/ (Sodium Chloride) 50.25 mls @ 201 mls/hr IV ONCE PRN PRN Reason: Nausea and Vomiting Lactated Ringer's (Lr) 1,000 mls @ 100 mls/hr IVCONT .Q10H AL Metoclopramide HCl (Metoclopramide Hcl 10 Mg/2 Ml Vial) 10 mg IVPUSH Q6H PRN PRN Reason: Nausea Ondansetron HCl (Ondansetron Hcl 4 Mg/2 Ml Vial) 4 mg IVPUSH ONCE PRN PRN Reason: Nausea and Vomiting Time Spent With Patient Time: Total time spent is greater than 50% in coordination of care (as documented) at patient's floor/unit and/or counseling patient: Time with patient: less than 15 minutes Quality Stroke Does the patient have a stroke diagnosis?: No VTE Prior VTE?: No VTE Risk Level:: Surgical - moderate VTE Device Contraindication: N/A - Device Ordered VTE Drug Contraindication: Treatment Not Indicated
[2021-03-17] MEDS: Metoclopramide HCl 10 MG/2 ML VIAL IVPUSH (10:00)
[2021-03-17] MEDS: Famotidine/PF 20 MG/2 ML VIAL IVPUSH ×2 (10:01→20:53)
[2021-03-17 10:23] LABS: Hematocrit 37.8 % (37.0-47.0); Hemoglobin 12.5 g/dl (12.0-16.0)
[2021-03-17 10:35] LABS: Anion Gap 13 (12-20); Blood Urea Nitrogen 9 mg/dL (9-16); Calcium 8.8 mg/dL (8.4-10.2); Carbon Dioxide 25 mmol/L (22-29); Chloride 106 mmol/L (96-108); Creatinine Clr Calc Pharmacy 136.9; Estimated Glomerular Filt Rate > 60; Glucose Random 135 mg/dL (60-115); Potassium 3.7 mmol/L (3.3-5.1); Sodium 140 mmol/L (135-145)
[2021-03-17] MEDS: Lactated Ringers 1,000 ML 100 ML IVCONT ×2 (11:06→20:49)
[2021-03-17] MEDS: HYDROmorphone HCl 0.5 MG/0.5 ML SYRINGE 0.25 MG IVPUSH (12:20)
[2021-03-17] MEDS: 0.9 % Sodium Chloride Flush 3 ML SYRINGE IVFLUSH (15:36)
[2021-03-18] MEDS: 0.9 % Sodium Chloride Flush 3 ML SYRINGE IVFLUSH (02:14)
[2021-03-18 03:44] VITALS: BP 137/78; PULSE 61; RESP 16; TEMP 37.1; O2SAT 99
[2021-03-18 05:35] LABS: MANUAL DIFF FLAG NO
[2021-03-18 05:37] LABS: Basophils Percent Auto 0.3 % (0-2); Eosinophils Percent Auto 0.1 % (0-4); Hematocrit 34.1 % (37.0-47.0); Hemoglobin 11.1 g/dl (12.0-16.0); Imm Gran Abs Auto 0.01 X10*3/uL (0.00-0.03); Imm Gran Pct Auto 0.1 % (0.0-0.4); Lymphocytes Absolute Auto 1.1 X10*3/uL (1.2-4.9); Lymphocytes Percent Auto 13.9 % (20-40); Mean Corpuscular HGB Conc 32.6 g/dl (31.0-35.0); Mean Corpuscular Volume 85.9 fL (80.0-98.0); Mean Platelet Volume 9.9 fL (9.4-12.3); Monocytes Absolute Auto 0.7 X10*3/uL (0.1-1.2); Neutrophils Percent Auto 76.6 % (45-73); Platelet Count 248 X10*3/uL (160-400); Red Blood Count 3.97 X10*6/uL (4.20-5.50); Red Cell Distribution Width 13.3 % (11.0-16.0); White Blood Count 7.9 X10*3/uL (4.8-10.8)
[2021-03-18 06:13] LABS: Anion Gap 12 (12-20); Blood Urea Nitrogen 7 mg/dL (9-16); Calcium 8.5 mg/dL (8.4-10.2); Carbon Dioxide 25 mmol/L (22-29); Chloride 106 mmol/L (96-108); Creatinine Clr Calc Pharmacy 154.9; Estimated Glomerular Filt Rate > 60; Glucose Random 90 mg/dL (60-115); Potassium 4.3 mmol/L (3.3-5.1); Sodium 139 mmol/L (135-145)
[2021-03-18] MEDS: ondansetron HCL 4 MG/2 ML VIAL IVPUSH (06:43)
[2021-03-18] MEDS: Lactated Ringers 1,000 ML 100 ML IVCONT (06:48)
--- NOTE | 2021-03-18 07:51 | PHA.MEDREC ---
Pharmacy Consult ? Medication Reconciliation Nursing has completed the medication reconciliation and Pharmacy has reviewed the medications.
[2021-03-18 08:00] VITALS: BP 114/77; PULSE 66; RESP 18; TEMP 36.5; O2SAT 100
--- NOTE | 2021-03-18 08:24 | HO.POSTANES ---
Post Anesthesia Evaluation Post Anesthesia Evaluation Vital Signs: Vital Signs Temp Pulse Resp BP Pulse Ox 03/18/21 08:00 97.7 F 66 18 114/77 100 03/18/21 03:44 98.7 F 61 16 137/78 99 03/17/21 22:49 97.2 F 60 16 132/80 99 Anesthesia: General Endotracheal-GETA Mental Status: Awake Pain Control: Satisfactory Nausea/Vomiting: None Hydration: Adequate Anesthesia-Related Issues: No Anes. Related Issues
--- NOTE | 2021-03-18 09:18 | MHC.CM.PN ---
PATIENT LIVES WITH HER FIRADHIKA AND FIVE CHILDREN. NO DME OR VNA SERVICES IN THE HOME. HCP COPY REQUESTED. SHE IS DISCHARGED HOME - SELF CARE. [facility]SEL TO TRANSPORT HOME.
== END 2021-03-18 10:30 | disposition home or self-care (01) | DRG 403 ==
LOC: HO.SSSA 09:50 → HO.S3 13:04
PROVIDERS: Physician Assistant; Admitting Provider Surgery; PCP Internal Medicine; Visit Provider Surgery
PROC: 0DB64Z3 Excision of Stomach, Percutaneous Endoscopic Approach, Vertical (ICD-10-PCS; CPT 43845; principal; 2021-03-17 07:30)
DX: E66.01 Morbid (severe) obesity due to excess calories (principal); K80.20 Calculus of gallbladder without cholecystitis without obstruction; Z68.38 Body mass index [BMI] 38.0-38.9, adult; Z20.822 Contact with and (suspected) exposure to COVID-19; Z79.899 Other long term (current) drug therapy
CPT/HCPCS: 36415; 80048; 80053; 80061; 83036; 83525; 84425; 84443; 85014; 85018; 85025; 85610; 85730; 86140; 86850; 86900; 86901; 87635; 88307; 88342; 99024; A4649; J0131; J0690; J1100; J1170; J1790; J2250; J2405; J2550; J2765; J3010

== ENCOUNTER → 2021-03-25 08:04 | Outpatient (BNVA) | payer OTHER, SELFPAY | PROVIDERS: Visit Provider Surgery | DX: E66.9 Obesity, unspecified (principal); Z98.84 Bariatric surgery status; Z68.36 Body mass index [BMI] 36.0-36.9, adult | CPT/HCPCS: 99212 ==

== ENCOUNTER → 2021-04-25 08:07 | Outpatient (BNVA) | payer OTHER, SELFPAY | PROVIDERS: Visit Provider Surgery | DX: E66.9 Obesity, unspecified (principal); Z68.35 Body mass index [BMI] 35.0-35.9, adult | CPT/HCPCS: 99212 ==

== ENCOUNTER → 2021-06-03 07:55 | Outpatient (BNVA) | payer OTHER, SELFPAY | PROVIDERS: Visit Provider Surgery | DX: E66.9 Obesity, unspecified (principal); Z68.32 Body mass index [BMI] 32.0-32.9, adult | CPT/HCPCS: 99212 ==

== ENCOUNTER 2023-01-31 13:10 | Outpatient (AMB) | payer OTHER, SELFPAY ==
--- NOTE | 2023-01-31 13:02 | A.OFFVIS_ITS ---
Intake Intake Visit Reasons: VIDEO PO LSG 03/17/2021 Allergies No Known Allergies [NKA] Allergy (Verified 03/25/21 08:08) HPI Nutrition Presentation Details Patient's last appointment with Dr. Painter in May 2020 - she was 11 weeks postop LSG 03/17/2021 I connected with patient through our private Facebook bariatric page and she requested an appointment with me I did not ask patient for a current weight today but she states she has regained Reason for consult elevated BMI Diet Assmnt Details its been really rough - Im constantly fighting with the urge to snack she feels that she is constantly obsessing about her next meal and is always thinking about food feels that she does good during the day but really struggles with snacking at night breakfast sandwich - 330 kcal Usually goes home for lunch - but needs to be quick , usually leftover form the night before snacks between lunch and dinner Dinner: Varies sometimes has carbs, she tries to always have protein and vegetable as well Lives with girlfriend and 4 kids . Everyone eats separate meals She feels that going back to protein shakes would be helpful. She just but a food log journal in she plans to start logging today Exercise: 20 minutes most days Dietary counseling reduction Diagnosis Nutrition problem #1 overweight/obesity As related to (etiology) #1 excess energy intake and physical inactivity As evidenced by (sign/symptom) #1 high BMI Monitoring/Goals Nutrition problem monitoring total energy intake, level of knowledge/skill, total PRO intake, total CHO intake, weight and oral fluids Outcome progress verbalized understanding Learning/Education Readiness to learn good Stages of change preparation Educational materials provided Yes Most Recent Diabetes Results: Cholesterol 180 mg/dL 03/10/21 HDL Cholesterol 36 mg/dL 03/10/21 Triglycerides 88 mg/dL 03/10/21 Creatinine 0.69 mg/dL (0.5-1.4) 03/18/21 Blood Urea Nitrogen 7 mg/dL (9-16) L 03/18/21 Sodium 139 mmol/L (135-145) 03/18/21 Potassium 4.3 mmol/L (3.3-5.1) 03/18/21 Chloride 106 mmol/L (96-108) 03/18/21 Carbon Dioxide 25 mmol/L (22-29) 03/18/21 Calcium 8.5 mg/dL (8.4-10.2) 03/18/21 AST 44 U/L (5-31) H 03/10/21 ALT 67 U/L (0-31) H 03/10/21 Total Protein 7.0 g/dL (6.5-8.0) 03/10/21 Albumin 4.3 g/dL (3.5-5.0) 03/10/21 [facility] Medical History (Updated 06/03/21 @ 09:19 by Min Painter MD) PONV (postoperative nausea and vomiting) BMI 39.0-39.9,adult Pre-op evaluation Vitamin D deficiency Vitamin B1 deficiency Adjustment disorder, unspecified Gestational hypertension Morbid obesity BMI 40.0-44.9, adult Surgical History Hx of section Hx of tubal ligation Family History Mother Asthma Father Diabetes Hypertension Brother No problems noted. Son No problems noted. Daughter No problems noted. Daughter No problems noted. Daughter No problems noted. Daughter No problems noted. Social History Are you a primary hospice spiritual care coordinator to a significant other at home: No Do you presently have visiting nurse or other home services: No Alcohol intake: never Patient Tobacco Use Status: Never used Tobacco service: No Current occupational status: employed Assessment & Plan Assessment & Plan (1) Obesity (BMI 30-39.9): Code(s): E66.9 - Obesity, unspecified Patient Instructions: Normalized pts thoughts about food and helped her recognize many people struggle with food and emotions. we talked about aiming for 20-30g protein per meal, gave some suggestions for quick easy ideas. Gave ideas for low carb breads , sent recipe resources, will also email recipe book. f/u with me 02/28 1pm and encouraged communication as needed in the meantime Telehealth Telehealth Location of provider rendering services: practice address Location of patient: other (car, in [place] state ) Patient Identification confirmed using: Name, : Yes Telehealth method: video Patient verbally consented to treatment: Yes Patient verbally consented to billing insurance company: Yes Patient informed of any privacy concerns related to visit: Yes Minutes spent on Phone/Video with Pt.: 30 Coding Level of Care Code Nutr Indiv Subseq ([id number]) Diagnoses Obesity (BMI 30-39.9) E66.9 Time Spent (min) 30
== END 2023-01-31 13:40 | disposition home or self-care (01) ==
LOC: HO.HBS 13:10
PROVIDERS: Visit Provider Dietitian, Registered
DX: E66.9 Obesity, unspecified (principal)

== ENCOUNTER → 2023-01-31 13:10 | Outpatient (BNVA) | payer OTHER, SELFPAY | PROVIDERS: Visit Provider Dietitian, Registered | DX: E66.9 Obesity, unspecified (principal) | CPT/HCPCS: 97803 ==

== ENCOUNTER → 2023-02-28 13:18 | Outpatient (BNVA) | payer OTHER, SELFPAY | PROVIDERS: Visit Provider Dietitian, Registered | DX: E66.9 Obesity, unspecified (principal); Z68.35 Body mass index [BMI] 35.0-35.9, adult | CPT/HCPCS: 97803 ==

== ENCOUNTER 2024-08-05 13:20 | Outpatient (AMB) | payer OTHER, SELFPAY ==
--- NOTE | 2024-08-05 13:38 | A.OFFVIS_ITS ---
VS Expanded 08/05/24 13:41 BP 126/70 Blood Pressure Location Lt brachial Blood Pressure Position Sitting Pulse 71 Pulse Oximetry 100 Height 5 ft 8 in Weight 217 lb 9.6 oz BMI 33.1 Body Fat % 42.4 Body Fat Mass 92.2 Fat Free Mass 125.4 Visceral Fat Rating 9.0 Body Water % 41.3 Body Water Mass 90.0 Muscle Mass/Score 119.0 Basal Metabolic Rate/Score 3,133 Intake Visit Reasons: OV PO LSG 03/17/2021 *GLP-1* Insurance Sales Assistant Required: No Allergies No Known Allergies [NKA] Allergy (Verified 08/05/24 13:40) Medication List - Last Reconciled 08/05/24 by VERA Delgado amitriptyline 10 mg PO BEDTIME cholecalciferol (vitamin D3) (Vitamin D3) 25 mcg PO DAILY ergocalciferol (vitamin D2) 1,250 mcg PO QWEEK sertraline 75 mg PO HPI Comments Details: Patient is a pleasant 38-year-old female who returns to the office today in follow-up. She is a proximally 3 years 4 months post sleeve gastrectomy performed on 03/17/2021. Weight at the time of surgery was 254.3 lb. She was last seen in the office on 02/28/2023 with a weight of 230 lb and a BMI of 35. Weight today is 217.6 lb with a BMI of 33.1. She has not been seen in a over a year due to busy schedule. This is improving. Not taking MVI Meal plan: nothing formal Exercise plan: 2 days per week, treadmill at gym, 1 hr sometimes changes speed stationary bike and treadmill at home Any post op complications: none DELFINA: never DM: never HTN: never Hyperlipidemia: never GERD:?0-5 scale ??0 = no symptoms ??1 = symptoms noticeable but not bothersome 2 =symptoms bothersome but not daily ? 3 = symptoms bothersome and daily 4 = symptoms affect daily activities 5 = symptoms are incapacitating, unable to do daily activities ? How bad is the heartburn: 0 ? Heartburn while lying down: 0 ? Heartburn when standing up: 0 ? Heartburn after meals: 0 ? Does heartburn change your diet: 0 ? Does heartburn wake you up from sleep: 0 ? Do you have difficulty swallowin ? Do you have pain with swallowin ? If you take medicine for your reflux, does this affect your daily life: 0 Satisfaction with present condition - satisfied or not satisfied: dissatisfied [facility] Medical History PONV (postoperative nausea and vomiting) BMI 39.0-39.9,adult Pre-op evaluation Vitamin D deficiency Vitamin B1 deficiency Adjustment disorder, unspecified Gestational hypertension Morbid obesity BMI 40.0-44.9, adult Surgical History Hx of tubal ligation Hx of section Family History Mother Asthma Father Diabetes Hypertension Brother No problems noted. Son No problems noted. Daughter No problems noted. Daughter No problems noted. Daughter No problems noted. Daughter No problems noted. Social History Are you a primary early breastfeeding care specialist to a significant other at home: No Do you presently have visiting nurse or other home services: No Alcohol intake: never Patient Tobacco Use Status: Never used Tobacco service: No Current occupational status: employed Physical Exam Vital Signs: Last Vital Signs Pulse 71 08/05/24 13:41 BP 126/70 08/05/24 13:41 Pulse Ox 100 08/05/24 13:41 BMI result Body Mass Index 33.1 Const General: healthy appearing and no acute distress Resp Effort & Inspection: normal respiratory effort Auscultation: clear to auscultation bilaterally Cardio Rate: regular rate Rhythm: regular rhythm GI Auscultation: normal bowel sounds Extrem General: Yes normal to inspection Assessment & Plan Assessment & Plan (1) S/P laparoscopic sleeve gastrectomy: Code(s): Z98.84 - Bariatric surgery status Category: Surgical Plan: Patient given information regarding right BMI. Discussed the importance of following meal plan and exercise. Check 3 year postop labs Encouraged to text weekly with weights and any questions or concerns Return to clinic 4 weeks Orders: Orders Complete Blood Count Auto Diff Today E51.9 - Thiamine deficiency, unspecified, E55.9 - Vitamin D deficiency, unspecified, Z98.84 - Bariatric surgery status Lipid Panel Today E51.9 - Thiamine deficiency, unspecified, E55.9 - Vitamin D deficiency, unspecified, Z98.84 - Bariatric surgery status IRON PROFILE Today E51.9 - Thiamine deficiency, unspecified, E55.9 - Vitamin D deficiency, unspecified, Z98.84 - Bariatric surgery status Vitamin B12 and Folate Today E51.9 - Thiamine deficiency, unspecified, E55.9 - Vitamin D deficiency, unspecified, Z98.84 - Bariatric surgery status TSH reflex Free T4 Today E51.9 - Thiamine deficiency, unspecified, E55.9 - Vitamin D deficiency, unspecified, Z98.84 - Bariatric surgery status Ferritin Today E51.9 - Thiamine deficiency, unspecified, E55.9 - Vitamin D deficiency, unspecified, Z98.84 - Bariatric surgery status Insulin Today E51.9 - Thiamine deficiency, unspecified, E55.9 - Vitamin D deficiency, unspecified, Z98.84 - Bariatric surgery status Hemoglobin A1c Today E51.9 - Thiamine deficiency, unspecified, E55.9 - Vitamin D deficiency, unspecified, Z98.84 - Bariatric surgery status Comprehensive Met. Panel Today E51.9 - Thiamine deficiency, unspecified, E55.9 - Vitamin D deficiency, unspecified, Z98.84 - Bariatric surgery status Zinc Today E51.9 - Thiamine deficiency, unspecified, E55.9 - Vitamin D deficiency, unspecified, Z98.84 - Bariatric surgery status C Reactive Protein Today E51.9 - Thiamine deficiency, unspecified, E55.9 - Vitamin D deficiency, unspecified, Z98.84 - Bariatric surgery status Vitamin B1 Today E51.9 - Thiamine deficiency, unspecified, E55.9 - Vitamin D deficiency, unspecified, Z98.84 - Bariatric surgery status Vitamin A Today E51.9 - Thiamine deficiency, unspecified, E55.9 - Vitamin D deficiency, unspecified, Z98.84 - Bariatric surgery status Vitamin D 25-OH Total Today E51.9 - Thiamine deficiency, unspecified, E55.9 - Vitamin D deficiency, unspecified, Z98.84 - Bariatric surgery status
[2024-08-05 13:41] VITALS: BP 126/70; PULSE 71; O2SAT 100; BMI 33.1
== END 2024-08-05 14:14 | disposition home or self-care (01) ==
LOC: HO.HBS 13:21
PROVIDERS: Visit Provider Physician Assistant Surgical
DX: E66.811 Obesity, class 1 (principal); Z68.33 Body mass index [BMI] 33.0-33.9, adult; Z90.3 Acquired absence of stomach [part of]; Z98.84 Bariatric surgery status
CPT/HCPCS: 99214

== ENCOUNTER → 2024-08-05 13:20 | Outpatient (BNVA) | payer OTHER, SELFPAY | PROVIDERS: Visit Provider Physician Assistant Surgical | DX: E66.01 Morbid (severe) obesity due to excess calories (principal); E51.9 Thiamine deficiency, unspecified; E55.9 Vitamin D deficiency, unspecified; Z98.84 Bariatric surgery status; Z68.33 Body mass index [BMI] 33.0-33.9, adult | CPT/HCPCS: 99212 ==